=== PATIENT | female | born 1980 | race Caucasian/White ===

== ENCOUNTER 2017-03-24 22:58 | Emergency (ER) | payer OTHER | END 2017-03-25 01:44 | disposition home or self-care (01) | LOC: FER 22:58 | DX: S46.012A Strain of muscle(s) and tendon(s) of the rotator cuff of left shoulder, initial encounter (principal); E11.43 Type 2 diabetes mellitus with diabetic autonomic (poly)neuropathy; K31.84 Gastroparesis; E78.5 Hyperlipidemia, unspecified; Z87.828 Personal history of other (healed) physical injury and trauma; Z79.4 Long term (current) use of insulin; Z79.899 Other long term (current) drug therapy | CPT/HCPCS: J1885 ==

== ENCOUNTER 2017-04-09 11:38 | Emergency (ER) | payer OTHER | END 2017-04-09 12:42 | disposition home or self-care (01) | LOC: FER 11:38 | DX: S93.602A Unspecified sprain of left foot, initial encounter (principal); M19.90 Unspecified osteoarthritis, unspecified site; M06.9 Rheumatoid arthritis, unspecified; Z79.1 Long term (current) use of non-steroidal anti-inflammatories (NSAID); Z79.899 Other long term (current) drug therapy; W22.8XXA Striking against or struck by other objects, initial encounter | CPT/HCPCS: 73630 ==

== ENCOUNTER 2017-04-16 15:46 | Emergency (ER) | payer OTHER | END 2017-04-16 18:05 | disposition home or self-care (01) | LOC: FER 15:46 | DX: S61.411A Laceration without foreign body of right hand, initial encounter (principal); E11.43 Type 2 diabetes mellitus with diabetic autonomic (poly)neuropathy; K31.84 Gastroparesis; Z23 Encounter for immunization; W25.XXXA Contact with sharp glass, initial encounter; Y92.009 Unspecified place in unspecified non-institutional (private) residence as the place of occurrence of the external cause | CPT/HCPCS: 90471; 90715 ==